=== PATIENT | female | born 1965 | race Caucasian/White ===

== ENCOUNTER 2017-11-16 15:08 | Observation (INO) | payer BC, OTHER ==
[2017-11-16] MEDS ORDERED: LEVOFLOXACIN 750MG/150ML D5W 750 MG/150 ML BAG IV ONE (17:54)
[2017-11-16] MEDS: Dextrose 5% -0.45 NaCl 1000 ML 1,000 ML IV SCH (18:16)
[2017-11-16] MEDS: LEVOFLOXACIN 750MG/150ML D5W 750 MG/150 ML BAG IV SCH (18:16)
[2017-11-16] MEDS: solu-MEDROL 125 MG IV SCH ×2 (18:16→23:35)
[2017-11-16 18:29] LABS: A-aADO2 -2; ABG HEMOGLOBIN 13.6; ABG POTASSIUM 3.8 (3.5-5.1); ARTERIAL BLOOD GAS BASE EXCESS 4.5 (-2.0-2.0); ARTERIAL BLOOD GAS FIO2 21 %; ARTERIAL BLOOD GAS PCO2 31 mmHg (35-45); ARTERIAL BLOOD GAS PO2 113 mmHg (75-100); ARTERIAL BLOOD GAS pH 7.54 (7.35-7.45); CARBOXYHEMOGLOBIN 1.9 % THgb (0.0-6.9); HCO3- 26.5 (22-28); HGB O2 SAT 96.8 g/dF (94-100); Methhemoglobin 1.2 % (1.4-1.5); paO2 pAO1 1.02
[2017-11-16 18:51] LABS: Granulocyte Absolute (ANC) 4.49 (1.4-6.9); Hematocrit 39.5 % (35-47); Hemoglobin 12.6 gm/dl (12.0-16.0); Mean Cell Volume 90.8 fl (78-100); Mean Corpuscular Hgb Concent. 31.9 g/dl (32-36); Mean Platelet Volume 9.8 fl (6-9.5); Platelet Count 271 K/mm3 (150-450); Red Blood Count 4.35 M/mm3 (4.1-5.4); Red Cell Distribution Width 13.4 % (11.5-14.0); White Blood Count 6.9 K/mm3 (4.0-10.5)
[2017-11-16] MEDS ORDERED: DUONEB 0.5-3 MG/3 ml Neb IH ONE (19:02)
[2017-11-16 19:28] LABS: ALBUMIN 4.1 g/dL (3.4-5.0); ALKALINE PHOSPHATASE 91 U/L (46-116); ANION GAP 11.3 MEQ/L (5-15); BLOOD UREA NITROGEN 19 mg/dL (9-20); CHLORIDE 104 mEq/L (98-107); Calcium 9.3 mg/dL (8.5-10.1); Carbon Dioxide 31.1 mEq/L (21-32); Creatinine 1 0.98 mg/dl (0.55-1.30); EST GLOMERULAR FILTRATION RATE > 60 ML/MIN; Glucose 107 MG/DL (70-110); NT PRO BNP 66 pg/ml (0-125); Potassium 4.1 mEq/L (3.5-5.1); SGOT/AST 24 U/L (15-37); SGPT/ALT 40 U/L (12-78); SODIUM 142 mEq/L (136-145); Total Protein 7.8 gm/dL (6.4-8.2)
[2017-11-16 19:30] LABS: TROPONIN < 0.017 ng/ml (0.000-0.056)
[2017-11-16] MEDS: DUONEB 0.5-3 MG/3 ml Neb IH SCH ×2 (20:05→23:29)
[2017-11-16 20:08] LABS: INFLUENZA B NEGATIVE (NEGATIVE); RESPIRATORY SYNCTIAL VIRUS NEGATIVE (Negative)
[2017-11-16 20:10] LABS: INFLUENZA A POSITIVE (NEGATIVE)
--- NOTE | 2017-11-16 20:41 | XRAY ---
Indication: Bronchopneumonia. Comparison: August 07, 2011. PA/lateral chest again demonstrates normal heart and lungs with incidental calcified granulomas. Bony thorax intact. No new/acute findings. Impression: Stable nonacute chest with evidence for old granulomatous disease.
[2017-11-16] MEDS: Tussionex Pennkinetic Susp PO SCH (21:27)
[2017-11-16] MEDS: TYLENOL 325 MG PO PRN (21:28)
[2017-11-16 22:27] LABS: Eosinophil 2 % (0.00-3.0); Lymphocytes 23 % (24-44); Monocyte 4 % (0.0-12.0); Neutrophils 71 % (36.0-66.0); Platelet Estimate NORMAL (NORMAL); Total Cells Counted 100
[2017-11-17] MEDS: DUONEB 0.5-3 MG/3 ml Neb IH SCH (05:32)
[2017-11-17] MEDS: solu-MEDROL 125 MG IV SCH ×2 (05:33→11:56)
[2017-11-17] MEDS: Dextrose 5% -0.45 NaCl 1000 ML 1,000 ML IV SCH ×2 (05:41→20:01)
[2017-11-17] MEDS ORDERED: DUONEB 0.5-3 MG/3 ml Neb IH PRN (07:18)
[2017-11-17] MEDS ORDERED: Xopenex 1.25 MG/0.5 ML UD NEBULE IH ONE (07:25)
[2017-11-17] MEDS ORDERED: NON-FORMULARY ITEM (Calcium [Calcium] 500 MG) PO SCH (10:00)
[2017-11-17] MEDS ORDERED: NON-FORMULARY ITEM (Multivitamin [Multivitamins] 1 EACH) PO SCH (10:00)
[2017-11-17] MEDS: Xopenex 1.25 MG/0.5 ML UD NEBULE IH SCH ×3 (11:00→22:29)
[2017-11-17] MEDS: LEVOFLOXACIN 750MG/150ML D5W 750 MG/150 ML BAG IV SCH (11:16)
[2017-11-17] MEDS: Tussionex Pennkinetic Susp PO SCH ×3 (11:17→23:20)
[2017-11-17] MEDS: Effexor XR 75 MG PO SCH (11:17)
[2017-11-17] MEDS: THERAGRAN MULTIVITAMIN PO SCH (11:17)
[2017-11-17] MEDS: VITAMIN B-12 100 MCG PO SCH (11:17)
[2017-11-17] MEDS: Calcium 500MG W/Vit D Tablet PO SCH (11:53)
[2017-11-17] MEDS: Tamiflu 75MG Capsule PO SCH ×2 (14:53→21:30)
[2017-11-17 15:18] LABS: Appearance CLEAR (CLEAR); Bacteria RARE /HPF (NEGATIVE); Bilirubin NEGATIVE (NEGATIVE); Blood NEGATIVE Ery/ul (0-5); Epithelial Cells RARE /HPF (FEW); Glucose NEGATIVE (NEGATIVE); Ketones NEGATIVE (NEGATIVE); Leukocyte Esterase NEGATIVE (NEGATIVE); Nitrite NEGATIVE (NEGATIVE); Protein,Urine Dip 300 (Negative); Specific Gravity 1.005 (1.005-1.025); Urobilinogen NORMAL mg/dL (0-1)
[2017-11-17] MEDS: solu-MEDROL 40 MG IV SCH (21:30)
[2017-11-17] MEDS ORDERED: Sodium Chloride 3 ML UD NEBULES IH ONE (22:21)
[2017-11-18] MEDS: TYLENOL 325 MG PO PRN (04:14)
[2017-11-18] MEDS: solu-MEDROL 40 MG IV SCH ×2 (05:20→15:06)
[2017-11-18] MEDS: Dextrose 5% -0.45 NaCl 1000 ML 1,000 ML IV SCH (05:20)
[2017-11-18] MEDS: Xopenex 1.25 MG/0.5 ML UD NEBULE IH SCH ×2 (07:25→11:36)
[2017-11-18] MEDS: LEVOFLOXACIN 750MG/150ML D5W 750 MG/150 ML BAG IV SCH (10:57)
[2017-11-18] MEDS: THERAGRAN MULTIVITAMIN PO SCH (10:57)
[2017-11-18] MEDS: Tussionex Pennkinetic Susp PO SCH (10:57)
[2017-11-18] MEDS: VITAMIN B-12 100 MCG PO SCH (10:57)
[2017-11-18] MEDS: Tamiflu 75MG Capsule PO SCH (10:57)
[2017-11-18] MEDS: Effexor XR 75 MG PO SCH (10:57)
[2017-11-18] MEDS: Calcium 500MG W/Vit D Tablet PO SCH (10:57)
[2017-11-18] MEDS ORDERED: Sodium Chloride 3 ML UD NEBULES IH SCH (11:00)
[2017-11-18 11:23] VITALS: BP 136/81
[2017-11-18 11:39] VITALS: PULSE 91; O2SAT 92
--- NOTE | 2017-11-19 10:47 | PROG NOTE ---
DATE: 11/17/2017 Chart is reviewed and events noted. At the time of this evaluation the patient is alert, awake. She states her shortness of breath has improved, still having some dry cough, denies chest pain. She states she is starting to eat better and overall feels better, appears comfortable. She complains of occasional headache. PHYSICAL EXAMINATION: VITAL SIGNS: Blood pressure 136/73, heart rate 88, respiratory rate 18, temperature 98.1F. Oxygen saturation 94%. HEENT: Pallor is present. No icterus is noted. NECK: No JVD is present. CVS: S1, S2 present. RESPIRATORY: Breath sounds are bilaterally diminished and clear to auscultation. ABDOMEN: Obese, soft, nontender. NEURO: She is alert, oriented x3. Evaluation of motor strength in bilateral upper and lower extremities reveals grossly intact motor strength. EXTREMITIES: No edema on bilateral lower extremities. LABORATORY DATA AND TESTS: Labs from yesterday had shown unremarkable CBC. ABG showed pH of 7.5, pCO2 31, pO2 113. CMP essentially unremarkable. Troponin was less than 0.017. NT-BNP 66. Respiratory panel showed positive for flu A. Blood cultures from 11/16/2017 are pending. EKG showed normal sinus rhythm at 75 beats/minute, flat T-wave in AVL. Chest x-ray showed stable nonacute chest with old granulomatous disease. Medications were reviewed. ASSESSMENT: A 52 year old woman with impression: 1) Acute bronchopneumonia. 2) Flu A. 3) Acute upper respiratory infection. 4) Anxiety. 5) Obesity. PLAN: Continue broad spectrum IV antibiotics. Taper steroids as tolerated. I was notified of the patient's positive flu A results by staff, will initiate Tamiflu. Continue droplet precautions. Ample p.o. fluids. The patient's clinical condition, work-up results and plan of management as outlined were discussed with the patient. She seems to be in understanding and agreement. The plan was discussed with the charge nurse.
--- NOTE | 2017-11-20 13:31 | DS ---
DISCHARGE DIAGNOSES: 1) ACUTE BRONCHOPNEUMONIA, CLINICALLY IMPROVED. 2) INFLUENZA A. 3) ACUTE UPPER RESPIRATORY INFECTION. 4) RIGHT EAR PAIN. 5) ANXIETY. 6) OBESITY. HOSPITAL COURSE: Inga Vela is a 52 year-old woman with past medical history of anxiety and obesity. She was recently seen for symptoms of bronchitis/upper respiratory infection in the office and was placed on antibiotics and steroids. Flu swab done at the time was negative. She did continue to have persistence of symptoms and was seen for follow up visit on 11/16/2017 at which time she had also reported some fever, generalized weakness and persistent symptoms. Please refer to my history and physical for details. The patient was admitted from office. Upon admission she was placed on IV fluids and broad spectrum IV antibiotics. Chest x-ray had revealed no acute changes. Other lab work up was negative except positive influenza A. I was not notified by positive results of influenza by nursing staff until the next day when I made rounds. The patient was immediately started on Tamiflu and also she had been placed on droplet precautions. Additionally, the patient was also placed on IV steroids and nebulization with improvement in her symptoms. During her further course she improved clinically and her steroids were gradually tapered. Blood cultures are still pending. The rest of her course was essentially more or less unremarkable. She improved clinically, remained hemodynamically stable. At the time of this evaluation earlier this afternoon she was alert, awake, comfortable, stated her shortness of breath had improved a lot. Complained of some mild right ear pain. She denied any other new complaints. She was tolerating diet well and had ambulated without any difficulty and was wishing to go home. PHYSICAL EXAMINATION: VITAL SIGNS: Blood pressure 126/78, heart rate 88, respiratory rate 18, temperature 97.4F. Oxygen saturation 96%. HEENT: No pallor or icterus is noted. Bilateral tympanic membranes seem to be dull. NECK: No JVD is present. CVS: S1, S2 present. RESPIRATORY: Breath sounds are bilaterally diminished and clear to auscultation. ABDOMEN: Obese, soft, nontender. NEURO: She is alert, oriented x3. EXTREMITIES: No edema on bilateral lower extremities. LABORATORY DATA AND TESTS: There were no new labs today. Blood cultures are pending. Medications were reviewed. ASSESSMENT: As outlined in the discharge diagnosis: PLAN: A 52 year-old lady with prior history of anxiety and obesity was admitted with persistent symptoms of acute bronchopneumonia. She was diagnosed with influenza A. She underwent work up and treatment. She has improved clinically, remains hemodynamically stable. She is feeling well and is wishing to go home. With regards to her right ear plan she was placed on hydrocortisone. The patient is being discharged home in stable condition. Please refer to discharge medication list from 11/18/2017 for details of medications on discharge. I have advised her drink ample p.o. fluids. I have advised her to stay off work until 11/19/2017 and return to work without restrictions on 11/20/2017. I asked her to follow up with me on 11/21/2017 as scheduled. Compliance with diet and medications was stressed. Complete cessation of smoking was stressed. I her to return to the Emergency Room [facility] if any new signs and symptoms or reappearance of previous signs and symptoms are noted. The patient's clinical condition, work-up results and plan of management and plan after discharge as outlined was discussed with her in detail. She seems to be in understanding and agreement. Discussed with charge nurse, Sivan. Please refer to the patient's chart, labs, diagnostic work up results and consult notes for details.
[2017-11-21 08:26] LABS: ABG SITE RIGHT RADIAL; ALLEN TEST OK? YES
== END 2017-11-18 16:00 | disposition home or self-care (01) ==
LOC: MED SURG 16:33
PROVIDERS: ADMIT General Practice; ATTEND General Practice
DX: J18.0 Bronchopneumonia, unspecified organism (principal); J10.1 Influenza due to other identified influenza virus with other respiratory manifestations; J06.9 Acute upper respiratory infection, unspecified; H92.01 Otalgia, right ear; F41.9 Anxiety disorder, unspecified; E66.9 Obesity, unspecified; Z79.899 Other long term (current) drug therapy
CPT/HCPCS: 36415; 36600; 71046; 80053; 81000; 82375; 82803; 83880; 84484; 85025; 87040; 87631; 93005; 94150; 94640; 94760; G0378; J1956; J2920; J2930; A9270-GY

== ENCOUNTER 2023-06-14 12:30 | Observation (INO) | payer OTHER ==
--- NOTE | 2023-06-14 12:38 | ERPHSYRPT ---
- History of Present Illness Time Seen by Provider: 06/14/23 12:38 Source: patient Exam Limitations: no limitations Physician History: This is an obese 57-year-old white female patient who was sent to our emergency department by primary care physician Dr. Jacobo. Patient began having symptoms of muscle aches and pains headache chills that began yesterday. This morning she woke up with bilateral ill pain, fever, cough, worsening chills and body aches with associated vomiting headache fatigue and dizziness. She was seen by her primary care physician today and found to have a positive COVID-19 test. She denies chest pain. She denies shortness of breath. She has no abdominal pain. Patient has a low-grade fever of 100.5 F on arrival to the emergency department. In addition she has a room air oxygenation level of 95%. Timing/Duration: yesterday Severity: moderate Associated Symptoms: nausea, vomiting, cough, chills, fever, weakness, No shortness of breath, No chest pain Allergies/Adverse Reactions: Penicillins Allergy (Verified 06/14/23 12:54) Home Medications: Venlafaxine HCl [Effexor Xr] 75 mg PO DAILY 08/05/12 [History] Calcium 500 mg PO DAILY 09/10/15 [History] Cyanocobalamin 100 Mcg [Vitamin B-12 100 Mcg] 100 mcg PO DAILY 09/10/15 [History] Multivitamin [Multivitamins] 1 each PO DAILY 09/10/15 [History] Hx Tetanus, Diphtheria Vaccination/Date Given: Yes Hx Influenza Vaccination/Date Given: No Hx Pneumococcal Vaccination/Date Given: No Travel Risk - International Travel Have you traveled outside of the country in past 3 weeks: No - Coronavirus Screening Are you exhibiting any of the following symptoms?: Yes Symptoms: Fever, Cough: New Onset, Vomiting/Diarrhea, Headaches/Body Aches/Fatigue Close contact with a COVID-19 positive Pt in past 14-21 Days: Yes - Review of Systems Constitutional: Fever, Chills, Weakness Eyes: No Symptoms Ears, Nose, & Throat: No Symptoms Respiratory: Cough, No Dyspnea Cardiac: No Chest Pain Abdominal/Gastrointestinal: Nausea, Vomiting, Diarrhea, Appetite Changes Musculoskeletal: Arthralgias, Myalgias Skin: No Symptoms Neurological: Dizziness, Headache Psychological: No Symptoms Endocrine: No Symptoms Hematologic/Lymphatic: No Symptoms Immunological/Allergic: No Symptoms All Other Systems: Reviewed and Negative - Past Medical History Pertinent Past Medical History: Yes Neurological History: No Pertinent History ENT History: Other Cardiac History: No Pertinent History Respiratory History: No Pertinent History Endocrine Medical History: No Pertinent History Musculoskeletal History: Fibromyalgia, Fractures GI Medical History: No Pertinent History History: No Pertinent History Psycho-Social History: Depression Female Reproductive Disorders: No Pertinent History Other Medical History: right ankle and leg fx, sinusitis - Past Surgical History Past Surgical History: Yes Neuro Surgical History: No Pertinent History Cardiac: No Pertinent History Respiratory: No Pertinent History Gastrointestinal: Exploratory Laparoscopy Genitourinary: No Pertinent History Musculoskeletal: Orthopedic Surgery Female Surgical History: Section, Hysterectomy - Social History Smoking Status: Never smoker Exposure to second hand smoke: No Drug Use: none Patient Lives Alone: No - Nursing Vital Signs Nursing Vital Signs: Initial Vital Signs Temperature 100.5 F 06/14/23 12:58 Pulse Rate 89 06/14/23 12:58 Respiratory Rate 20 06/14/23 12:58 Blood Pressure 154/83 06/14/23 12:58 O2 Sat by Pulse Oximetry 95 06/14/23 12:58 Pain Scale Pain Intensity 5 - Physical Exam General Appearance: mild distress, alert, anxiety, obese Eye Exam: PERRL/EOMI, eyes nml inspection Ears, Nose, Throat Exam: normal ENT inspection, moist mucous membranes Neck Exam: normal inspection, non-tender, supple, full range of motion Respiratory Exam: normal breath sounds, lungs clear, airway intact, No chest tenderness, No respiratory distress Cardiovascular Exam: regular rate/rhythm, normal heart sounds, normal peripheral pulses Gastrointestinal/Abdomen Exam: soft, normal bowel sounds, No tenderness Pelvic Exam: not done Rectal Exam: not done Back Exam: normal inspection, normal range of motion, No CVA tenderness Extremity Exam: normal inspection, normal range of motion, pelvis stable Neurologic Exam: alert, oriented x 3, cooperative, youth worker II-XII nml as tested, normal mood/affect, nml cerebellar function, nml station & gait, sensation nml Skin Exam: normal color, warm, dry Lymphatic Exam: No adenopathy SpO2 Interpretation: normal O2 Delivery: Room Air - Course Nursing assessment & vital signs reviewed: Yes EKG Interpreted by Me: RATE (82), Sinus Rhythm, NORMAL AXIS, NORMAL INTERVALS, NORMAL QRS, NORMAL ST-T, Other (No acute ischemic changes on today's twelve-lead EKG.) Ordered Tests: Active Orders 24 hr Category Date Time Status Mixing Pan Tender STAT Care 06/14/23 13:25 Active EKG-ER Only STAT Care 06/14/23 13:25 Active IV Insertion STAT Care 06/14/23 13:25 Active Oxygen-ED Only Nasal Cannula 2 lpm Care 06/14/23 14:15 Active Pulse Oximetry (ED) STAT Care 06/14/23 13:25 Active CHEST 1 VIEW (PORTABLE) Stat Exams 06/14/23 13:25 Completed BLOOD CULTURE Stat Lab 06/14/23 13:47 Received CBC W DIFF Stat Lab 06/14/23 13:25 Completed CMP Stat Lab 06/14/23 13:13 Completed D-DIMER QUANTITATIVE Stat Lab 06/14/23 13:25 Completed MONO SCREEN Stat Lab 06/14/23 13:13 Completed TROPONIN Q4H Lab 06/14/23 13:13 Received TROPONIN Q4H Lab 06/14/23 20:30 Ordered TROPONIN Q4H Lab 06/15/23 00:30 Ordered Transfer Order Routine Transfer 06/14/23 Ordered Medication Summary Generic Name Dose Route Start Last Admin Trade Name Freq PRN Reason Stop Dose Admin Methylprednisolone Sodium 0 mg 06/14/23 22:00 Succinate 80 mg/ Sterile Water IV 07/14/23 21:59 2 ml Q8HT CHARMAINE Ceftriaxone Sodium/Dextrose 1 g in 50 mls @ 100 mls/hr 06/14/23 16:47 Rocephin 1 Gm-D5w 50 Ml Bag IV 06/14/23 17:16 STAT STA Discontinued Medications Generic Name Dose Route Start Last Admin Trade Name Freq PRN Reason Stop Dose Admin Hydrocodone Bitart/Acetaminophen 10 ml 06/14/23 13:26 06/14/23 13:40 Hydrocodone/Acetaminophen 5 Ml Udcup PO 06/14/23 13:27 10 ml STAT STA Administration Hydrocodone Bitart/Acetaminophen Confirm 06/14/23 13:30 Hydrocodone/Acetaminophen 5 Ml Udcup Administered 06/14/23 13:31 Dose 10 ml .ROUTE .STK-MED ONE Methylprednisolone Sodium 0 mg 06/14/23 13:25 06/14/23 13:37 Succinate 125 mg/ Sterile IV 06/14/23 13:26 125 mg Water 2 ml STAT ONE Administration Sodium Chloride 1,000 mls @ 999 mls/hr 06/14/23 13:25 06/14/23 14:35 Sodium Chloride 0.9% 1000 Ml IV 06/14/23 14:25 Infused .Q1H1M STA Infusion Sodium Chloride Confirm 06/14/23 13:31 Sodium Chloride 0.9% 1000 Ml Administered 06/14/23 13:32 Dose 1,000 mls @ ud .ROUTE .STK-MED ONE Methylprednisolone Sodium Succinate Confirm 06/14/23 13:31 Methylprednis Sod Succ 125 Mg/2 Ml Vial Administered 06/14/23 13:32 Dose 125 mg .ROUTE .STK-MED ONE Ondansetron HCl Confirm 06/14/23 13:31 Ondansetron Hcl 4 Mg/2 Ml Vial Administered 06/14/23 13:32 Dose 4 mg .ROUTE .STK-MED ONE Ondansetron HCl 4 mg 06/14/23 13:41 06/14/23 13:41 Ondansetron Hcl 4 Mg/2 Ml Vial IV 06/14/23 13:42 4 mg STAT ONE Administration Sterile Water Confirm 06/14/23 13:30 Water For Injection,Sterile 10 Ml Vial Administered 06/14/23 13:31 Dose 10 ml IJ .STK-MED ONE Lab/Rad Data: Laboratory Result Diagrams 06/14/23 13:25 06/14/23 13:13 Laboratory Results 06/14/23 06/14/23 06/14/23 Range/Units 13:25 13:25 13:13 WBC 6.3 (4.0-10.5) x10^3/uL RBC 4.27 (4.1-5.4) x10^6/uL Hgb 12.5 (12.0-16.0) g/dL Hct 37.9 (35-47) % MCV 88.8 (78-100) fL MCH 29.3 (26-32) pg MCHC 33.0 (32-36) g/dL RDW 12.8 (11.5-14.0) % Plt Count 244 (150-450) x10^3/uL MPV 10.2 (7.5-11.0) fL Gran % 78.8 H (36.0-66.0) % Immature Gran % (Auto) 0.3 (0.00-0.4) % Nucleat RBC Rel Count 0.0 (0.00-0.1) % Eos # (Auto) 0.01 (0-0.5) x10^3/uL Immature Gran # (Auto) 0.02 (0.00-0.03) x10^3u/L Absolute Lymphs (auto) 0.64 L (1.0-4.6) x10^3/uL Absolute Monos (auto) 0.64 (0.0-1.3) x10^3/uL Absolute Nucleated RBC 0.00 (0.00-0.01) x10^3u/L Lymphocytes % 10.2 L (24.0-44.0) % Monocytes % 10.2 (0.0-12.0) % Eosinophils % 0.2 (0.00-5.0) % Basophils % 0.3 (0.0-0.4) % Absolute Granulocytes 4.97 (1.4-6.9) x10^3/uL Basophils # 0.02 (0-0.4) x10^3/uL D-Dimer 0.30 (0.0-0.50) mg/L Sodium (137-145) mmol/L Potassium (3.5-5.1) mmol/L Chloride (98-107) mmol/L Carbon Dioxide (22-30) mmol/L Anion Gap (5-15) MEQ/L BUN (7-17) mg/dL Creatinine (0.52-1.04) mg/dL Estimated GFR ML/MIN Glucose (74-106) mg/dL Calcium (8.4-10.2) mg/dL Total Bilirubin (0.2-1.3) mg/dL AST (14-36) U/L ALT (0-35) U/L Alkaline Phosphatase (38-126) U/L Serum Total Protein (6.3-8.2) g/dL Albumin (3.5-5.0) g/dL Monoscreen NEGATIVE (NEGATIVE) Group A Strep Antibody (NEGATIVE) 06/14/23 06/14/23 Range/Units 13:13 13:13 WBC (4.0-10.5) x10^3/uL RBC (4.1-5.4) x10^6/uL Hgb (12.0-16.0) g/dL Hct (35-47) % MCV (78-100) fL MCH (26-32) pg MCHC (32-36) g/dL RDW (11.5-14.0) % Plt Count (150-450) x10^3/uL MPV (7.5-11.0) fL Gran % (36.0-66.0) % Immature Gran % (Auto) (0.00-0.4) % Nucleat RBC Rel Count (0.00-0.1) % Eos # (Auto) (0-0.5) x10^3/uL Immature Gran # (Auto) (0.00-0.03) x10^3u/L Absolute Lymphs (auto) (1.0-4.6) x10^3/uL Absolute Monos (auto) (0.0-1.3) x10^3/uL Absolute Nucleated RBC (0.00-0.01) x10^3u/L Lymphocytes % (24.0-44.0) % Monocytes % (0.0-12.0) % Eosinophils % (0.00-5.0) % Basophils % (0.0-0.4) % Absolute Granulocytes (1.4-6.9) x10^3/uL Basophils # (0-0.4) x10^3/uL D-Dimer (0.0-0.50) mg/L Sodium 138 (137-145) mmol/L Potassium 3.8 (3.5-5.1) mmol/L Chloride 96 L (98-107) mmol/L Carbon Dioxide 32 H (22-30) mmol/L Anion Gap 14.3 (5-15) MEQ/L BUN 16 (7-17) mg/dL Creatinine 0.91 (0.52-1.04) mg/dL Estimated GFR > 60.0 ML/MIN Glucose 92 (74-106) mg/dL Calcium 9.7 (8.4-10.2) mg/dL Total Bilirubin 0.50 (0.2-1.3) mg/dL AST 31 (14-36) U/L ALT 30 (0-35) U/L Alkaline Phosphatase 91 (38-126) U/L Serum Total Protein 7.9 (6.3-8.2) g/dL Albumin 4.7 (3.5-5.0) g/dL Monoscreen (NEGATIVE) Group A Strep Antibody NOT DETECTED (NEGATIVE) - Progress Progress: improved, re-examined Progress Note: 06/14/23 16:15 This patient's medical issue is 1 of high complexity. Level complexity in the work-up performed is based on review of the patient's past medical history, review of the patient's medication list, review of the patient's drug allergy list, history of present illness and physical findings on examination. The work-up in this patient includes twelve-lead EKG, D-dimer level, chest x-ray, CBC, CMP, group A strep test, monotest. In addition we placed an intravenous li ne and provide the patient with 125 mg of Solu-Medrol intravenously and 10 mL of hydrocodone/acetaminophen elixir to help with sore throat and cough. 06/14/23 16:18 This x-ray was interpreted by the radiologist and I reviewed the impression. There is no evidence of any new, acute cardiopulmonary processes. 06/14/23 16:24 The original plan was to have this patient discharged to home. However she did have some desaturations and so I had respiratory therapy evaluate the patient. After the patient's desaturation, we placed the patient on 2 L oxygen via nasal cannula and the patient increased her oxygenation from 89% to 97%. Respiratory therapy evaluate her and took her off of the oxygen. The respiratory therapist observed the patient for approximately 12 minutes and the patient's oxygen s aturation level was maintained, originally, between 93 and 95%. However she then briefly desaturated down to 88 to 89%. We provided her with some options which included possible discharge to home with oxygen therapy or to be placed in observation if the hospitalist would agree the patient would require observation. I believe the patient would benefit from observation in the hospital with management. The patient then desaturated down to 83%. And stayed down to 83 to 89% on room air. Therefore, I will contact the hospitalist to place this patient in observation so we can provide her with steroids, nebulizer treatments, oxygen supplementation. 06/14/23 16:27 06/14/23 16:46 I reviewed the past medical history, history present illness and physical findings with Dr. Shannon, our telehospitalist. I also reviewed the patient's response to our management. He agrees with placing the patient in observation. We will also add Rocephin and azithromycin to her drug regimen. Counseled pt/family regarding: lab results, diagnosis, need for follow-up, rad results Medical Desision Making - Independent Historian Additional History obtained from: Family - Diagnostic Testing Diagnostic test were ordered, analyzed, and reviewed by me: Yes Radiological Interpretation: Reviewed by me, Teleradiologist Report - Risk of complications The pt has a high risk of morbidity or mortality based on: Decision regarding hospitilization or escalation of hosp level of care - Departure Departure Disposition: Observation Clinical Impression: COVID-19 virus infection, Hypoxia, Shortness of breath, Upper respiratory infection Condition: Fair Critical Care Time: Yes Critical Care Time(excluding separately billable procedures): Critical 30-74 mins (40 minutes) Referrals: ANA MARÍA JACOBO MD [Primary Care Provider] - Follow up/PCP as directed
[2023-06-14] MEDS ORDERED: Sodium Chloride 0.9% 1000 ML 1,000 ML IV STA (13:25)
[2023-06-14] MEDS ORDERED: solu-MEDROL 125 MG, Sterile H2O 10 ml 2 ML IV ONE ×2 (13:25)
[2023-06-14] MEDS ORDERED: HYDROCODONE-ACETAMIN 2.5-108/5 ML SOLUTION PO STA (13:26)
[2023-06-14] MEDS ORDERED: HYDROCODONE-ACETAMIN 2.5-108/5 ML SOLUTION ONE (13:30)
[2023-06-14] MEDS ORDERED: Sterile H2O 10 ml IJ ONE (13:30)
[2023-06-14] MEDS ORDERED: Sodium Chloride 0.9% 1000 ML 1,000 ML ONE (13:31)
[2023-06-14] MEDS ORDERED: Zofran 4 MG/2 ML VIAL ONE (13:31)
[2023-06-14] MEDS ORDERED: solu-MEDROL ONE (13:31)
[2023-06-14] MEDS ORDERED: Zofran 4 MG/2 ML VIAL IV ONE (13:41)
[2023-06-14 13:56] LABS: Absolute Neutrophil Ct (ANC) 4.97 x10^3/uL (1.4-6.9); BASOPHIL % 0.3 % (0.0-0.4); Basophil (Absolute #) 0.02 x10^3/uL (0-0.4); Eosinophil % 0.2 % (0.00-5.0); Eosinophil (Absolute #) 0.01 x10^3/uL (0-0.5); Hematocrit 37.9 % (35-47); Hemoglobin 12.5 g/dL (12.0-16.0); IMMATURE GRAN # 0.02 x10^3u/L (0.00-0.03); IMMATURE GRAN % 0.3 % (0.00-0.4); Lymphocyte (Absolute #) 0.64 x10^3/uL (1.0-4.6); Lymphocytes % 10.2 % (24.0-44.0); Mean Cell Volume 88.8 fL (78-100); Mean Corpuscular Hemoglobin 29.3 pg (26-32); Mean Platelet Volume 10.2 fL (7.5-11.0); Monocyte (Absolute #) 0.64 x10^3/uL (0.0-1.3); Monocytes % 10.2 % (0.0-12.0); Neutrophil % 78.8 % (36.0-66.0); Platelet Count 244 x10^3/uL (150-450); Red Blood Count 4.27 x10^6/uL (4.1-5.4); Red Cell Distribution Width 12.8 % (11.5-14.0); White Blood Count 6.3 x10^3/uL (4.0-10.5)
[2023-06-14 14:05] LABS: ALBUMIN 4.7 g/dL (3.5-5.0); ALKALINE PHOSPHATASE 91 U/L (38-126); ANION GAP 14.3 MEQ/L (5-15); BLOOD UREA NITROGEN 16 mg/dL (7-17); CHLORIDE 96 mmol/L (98-107); Calcium 9.7 mg/dL (8.4-10.2); Carbon Dioxide 32 mmol/L (22-30); Creatinine 1 0.91 mg/dL (0.52-1.04); EST GLOMERULAR FILTRATION RATE > 60.0 ML/MIN; Glucose 92 mg/dL (74-106); Potassium 3.8 mmol/L (3.5-5.1); SGOT/AST 31 U/L (14-36); SGPT/ALT 30 U/L (0-35); SODIUM 138 mmol/L (137-145); Total Protein 7.9 g/dL (6.3-8.2)
--- NOTE | 2023-06-14 16:01 | XRAY ---
Indication: Cough. Positive Covid 19. Comparison: October 23, 2018 Portable chest again demonstrates normal heart and lungs with incidental tiny right lung calcified granuloma. Bony thorax intact. No new/acute findings.
[2023-06-14] MEDS ORDERED: ROCEPHIN 1 Gm-D5w 50 ml Bag** 1 G/50 ML IVPB IV STA (16:47)
[2023-06-14] MEDS ORDERED: Sodium Chloride 0.9% 1000 ML 1,000 ML IV SCH (17:21)
[2023-06-14] MEDS ORDERED: HYDROCODONE-ACETAMIN 2.5-108/5 ML SOLUTION PO PRN (17:21)
[2023-06-14] MEDS ORDERED: TYLENOL 325 MG PO PRN (17:21)
--- NOTE | 2023-06-14 17:42 | PCM.HP ---
History of Present Illness - Chief Complaint Chief Complaint: Shortness of breath Date: 06/14/23 History of Present Illness: This is an obese 57-year-old white female patient with a hx of fibromyalgia and depression. She was sent to our emergency department by primary care physician Dr. Gonzales. Patient began having symptoms of muscle aches and pains, headache, and chills that began yesterday. This morning she woke up with bilateral ear pain, fever, cough, worsening chills and body aches with associated vomiting headache fatigue and dizziness. She was seen by her primary care physician today and found to have a positive COVID-19 test. She denies chest pain, abdominal pain, or diarrhea. Patient had a low-grade fever of 100.5 F on arrival to the emergency department. Room air oxygenation level of 95%. In the ER she received IV fluids, antibiotics, and steroids. We admit her and continue the same plan of care. - Review of Systems Constitutional: Fever, Chills Eyes: No Symptoms Ears, Nose, & Throat: No Symptoms, Ear Pain (BL) Respiratory: Cough, Short Of Breath Cardiac: No Chest Pain, No Edema, No Syncope Abdominal/Gastrointestinal: Vomiting, No Abdominal Pain, No Nausea, No Diarrhea Genitourinary Symptoms: No Dysuria Musculoskeletal: No Back Pain, No Neck Pain Skin: No Rash Neurological: No Dizziness, No Focal Weakness, No Sensory Changes Psychological: No Symptoms Endocrine: No Symptoms Hematologic/Lymphatic: No Symptoms Immunological/Allergic: No Symptoms Medications & Allergies Home Medications: Home Medication List Venlafaxine HCl [Effexor Xr] 75 mg PO DAILY 08/05/12 [History Confirmed 06/14/23] Calcium 500 mg PO DAILY 09/10/15 [History Confirmed 06/14/23] Cyanocobalamin 100 Mcg [Vitamin B-12 100 Mcg] 100 mcg PO DAILY 09/10/15 [History Confirmed 06/14/23] Multivitamin [Multivitamins] 1 each PO DAILY 09/10/15 [History Confirmed 06/14/23] Hydrocod Psx/Chlor-Carlos [Tussionex Pennkinetic Susp] 5 ml PO BID 7 Days #1 oralsyring MDD 10 11/18/17 [Rx Confirmed 06/14/23] Hydrocortisone/Acetic Acid [Hydrocortison-Acetic Acid Soln] 10 ml OT TID 5 Days #30 drops 11/18/17 [Rx Confirmed 06/14/23] Methylprednisolone Packet [Medrol Dosepack] 4 mg PO UD #1 packet 11/18/17 [Rx Confirmed 06/14/23] Oseltamivir 75 mg [Tamiflu 75MG Capsule] 75 mg PO BID 4 Days #8 cap 11/18/17 [Rx Confirmed 06/14/23] PANTOPRAZOLE 40 mg Tablet [Protonix 40MG Tablet] 40 mg PO QAM #7 tab 11/18/17 [Rx Confirmed 06/14/23] Allergies/Adverse Reactions: Allergies Allergy/AdvReac Type Severity Reaction Status Date / Time Penicillins Allergy Verified 06/14/23 12:54 - Past Medical History Past Medical History: Yes Neurological History: No Pertinent History ENT History: Other Cardiac History: No Pertinent History Respiratory History: No Pertinent History Endocrine Medical History: No Pertinent History Musculoskelatal History: Fibromyalgia, Fractures GI Medical History: No Pertinent History History: No Pertinent History Pyscho-Social History: Depression Reproductive Disorders: No Pertinent History Comment: right ankle and leg fx, sinusitis - Past Surgical History Past Surgical History: Yes Neuro Surgical History: No Pertinent History Cardiac History: No Pertinent History Respiratory Surgery: No Pertinent History GI Surgical History: Exploratory Laparoscopy Genitourinary Surgical Hx: No Pertinent History Musculskeletal Surgical Hx: Orthopedic Surgery Female Surgical History: Section, Hysterectomy - Social History Smoking Status: Never smoker Exposure to second hand smoke: No Alcohol: None Drug Use: none - Physical Exam Vital Signs: Vital Signs - 24 hr Temp Pulse Resp BP BP Pulse Ox 06/14/23 15:00 80 15 142/84 96 06/14/23 13:46 86 23 149/94 94 L 06/14/23 13:27 94 L 06/14/23 12:58 100.5 F 89 20 154/83 95 General Appearance: no apparent distress, alert Neurologic Exam: alert, oriented x 3, cooperative, normal mood/affect, nml cerebellar function, nml station & gait, sensation nml, No motor deficits Eye Exam: PERRL/EOMI, eyes nml inspection Ears, Nose, Throat Exam: normal ENT inspection, TMs normal, pharynx normal, moist mucous membranes Neck Exam: normal inspection, non-tender, supple, full range of motion Respiratory Exam: normal breath sounds, lungs clear, No respiratory distress Cardiovascular Exam: regular rate/rhythm, normal heart sounds, normal peripheral pulses Gastrointestinal/Abdomen Exam: soft, normal bowel sounds, No tenderness, No mass Back Exam: normal inspection, normal range of motion, No CVA tenderness, No vertebral tenderness Extremity Exam: normal inspection, normal range of motion, pelvis stable Skin Exam: normal color, warm, dry, No rash Lymphatic Exam: No adenopathy Results - Labs Lab/Micro Results: Lab Results-Last 24 Hours 06/14/23 06/14/23 06/14/23 Range/Units 13:13 13:13 13:13 WBC (4.0-10.5) x10^3/uL RBC (4.1-5.4) x10^6/uL Hgb (12.0-16.0) g/dL Hct (35-47) % MCV (78-100) fL MCH (26-32) pg MCHC (32-36) g/dL RDW (11.5-14.0) % Plt Count (150-450) x10^3/uL MPV (7.5-11.0) fL Gran % (36.0-66.0) % Immature Gran % (Auto) (0.00-0.4) % Nucleat RBC Rel Count (0.00-0.1) % Eos # (Auto) (0-0.5) x10^3/uL Immature Gran # (Auto) (0.00-0.03) x10^3u/L Absolute Lymphs (auto) (1.0-4.6) x10^3/uL Absolute Monos (auto) (0.0-1.3) x10^3/uL Absolute Nucleated RBC (0.00-0.01) x10^3u/L Lymphocytes % (24.0-44.0) % Monocytes % (0.0-12.0) % Eosinophils % (0.00-5.0) % Basophils % (0.0-0.4) % Absolute Granulocytes (1.4-6.9) x10^3/uL Basophils # (0-0.4) x10^3/uL D-Dimer (0.0-0.50) mg/L Sodium 138 (137-145) mmol/L Potassium 3.8 (3.5-5.1) mmol/L Chloride 96 L (98-107) mmol/L Carbon Dioxide 32 H (22-30) mmol/L Anion Gap 14.3 (5-15) MEQ/L BUN 16 (7-17) mg/dL Creatinine 0.91 (0.52-1.04) mg/dL Estimated GFR > 60.0 ML/MIN Glucose 92 (74-106) mg/dL Calcium 9.7 (8.4-10.2) mg/dL Total Bilirubin 0.50 (0.2-1.3) mg/dL AST 31 (14-36) U/L ALT 30 (0-35) U/L Alkaline Phosphatase 91 (38-126) U/L Troponin I (0.000-0.034) ng/mL Serum Total Protein 7.9 (6.3-8.2) g/dL Albumin 4.7 (3.5-5.0) g/dL Monoscreen NEGATIVE (NEGATIVE) Group A Strep Antibody NOT DETECTED (NEGATIVE) 06/14/23 06/14/23 06/14/23 Range/Units 13:13 13:25 13:25 WBC 6.3 (4.0-10.5) x10^3/uL RBC 4.27 (4.1-5.4) x10^6/uL Hgb 12.5 (12.0-16.0) g/dL Hct 37.9 (35-47) % MCV 88.8 (78-100) fL MCH 29.3 (26-32) pg MCHC 33.0 (32-36) g/dL RDW 12.8 (11.5-14.0) % Plt Count 244 (150-450) x10^3/uL MPV 10.2 (7.5-11.0) fL Gran % 78.8 H (36.0-66.0) % Immature Gran % (Auto) 0.3 (0.00-0.4) % Nucleat RBC Rel Count 0.0 (0.00-0.1) % Eos # (Auto) 0.01 (0-0.5) x10^3/uL Immature Gran # (Auto) 0.02 (0.00-0.03) x10^3u/L Absolute Lymphs (auto) 0.64 L (1.0-4.6) x10^3/uL Absolute Monos (auto) 0.64 (0.0-1.3) x10^3/uL Absolute Nucleated RBC 0.00 (0.00-0.01) x10^3u/L Lymphocytes % 10.2 L (24.0-44.0) % Monocytes % 10.2 (0.0-12.0) % Eosinophils % 0.2 (0.00-5.0) % Basophils % 0.3 (0.0-0.4) % Absolute Granulocytes 4.97 (1.4-6.9) x10^3/uL Basophils # 0.02 (0-0.4) x10^3/uL D-Dimer 0.30 (0.0-0.50) mg/L Sodium (137-145) mmol/L Potassium (3.5-5.1) mmol/L Chloride (98-107) mmol/L Carbon Dioxide (22-30) mmol/L Anion Gap (5-15) MEQ/L BUN (7-17) mg/dL Creatinine (0.52-1.04) mg/dL Estimated GFR ML/MIN Glucose (74-106) mg/dL Calcium (8.4-10.2) mg/dL Total Bilirubin (0.2-1.3) mg/dL AST (14-36) U/L ALT (0-35) U/L Alkaline Phosphatase (38-126) U/L Troponin I < 0.012 (0.000-0.034) ng/mL Serum Total Protein (6.3-8.2) g/dL Albumin (3.5-5.0) g/dL Monoscreen (NEGATIVE) Group A Strep Antibody (NEGATIVE) - Radiology Impressions Radiology Exams & Impressions: Radiology Procedures Category Date Time Status CHEST 1 VIEW (PORTABLE) Stat Exams 06/14/23 13:25 Completed - Other Procedures and Tests Respiratory Therapy 06/14/23 17:21 EKG REPEAT IN AM Oxygen Nasal Cannula 2 lpm Respiratory Therapy Consult ONCE Assessment/Plan (1) COVID-19 virus infection Current Visit: Yes Status: Acute Assessment & Plan: - Decadron, doxycycline, breathing treatments - RT eval and treat - Tylenol for body aches and headaches - NS @ 50 - Chest XR 06/14/23 Portable chest again demonstrates normal heart and lungs with incidental tiny right lung calcified granuloma. Bony thorax intact. No new/acute findings. Code(s): U07.1 - COVID-19 (2) Obesity Current Visit: Yes Status: Acute Assessment & Plan: - advised diet and exercise control Code(s): E66.9 - OBESITY, UNSPECIFIED (3) Nausea & vomiting Current Visit: Yes Status: Acute Assessment & Plan: - Zofran PRN - NS @ 50 Code(s): R11.2 - NAUSEA WITH VOMITING, UNSPECIFIED (4) Depression Current Visit: Yes Status: Acute Assessment & Plan: - Continue effexor Code(s): F32.A - DEPRESSION, UNSPECIFIED (5) Shortness of breath Current Visit: Yes Status: Acute Assessment & Plan: -R/T COVID - PRN Oxygen Keep sat > 92% - RT eval and treat - Steroids and antibiotics VTE: Lovenox PPI: Protonix D/C plan: tomorrow Next of kin: - Carly Vela [phone] Code(s): R06.02 - SHORTNESS OF BREATH
[2023-06-14] MEDS ORDERED: Zofran 4 MG/2 ML VIAL IV PRN (18:35)
[2023-06-14 19:35] LABS: INFLUENZA A NEGATIVE (NEGATIVE); INFLUENZA B NEGATIVE (NEGATIVE); RESPIRATORY SYNCTIAL VIRUS NEGATIVE (NEGATIVE)
[2023-06-14 19:58] LABS: SARS-CoV-2 Xpert Express POSITIVE (NEGATIVE)
[2023-06-14] MEDS: HYDROCODONE-CHLORPHEN ER SUSP PO SCH (21:15)
[2023-06-14] MEDS: Vibramycin 100 MG PO SCH (21:15)
[2023-06-14] MEDS ORDERED: ACETIC ACID OT SCH (22:00)
[2023-06-14] MEDS ORDERED: [UNRECOGNIZED DRUG - OTHER] OT SCH (22:00)
[2023-06-14] MEDS ORDERED: HYDROCORTISONE OT SCH (22:00)
[2023-06-14] MEDS ORDERED: solu-MEDROL 80 MG, Sterile H2O 10 ml 2 ML IV SCH ×2 (22:00)
[2023-06-15 01:56] LABS: Absolute Neutrophil Ct (ANC) 4.22 x10^3/uL (1.4-6.9); Basophil (Absolute #) 0 x10^3/uL (0-0.4); Eosinophil (Absolute #) 0 x10^3/uL (0-0.5); Hematocrit 37.7 % (35-47); Hemoglobin 12.1 g/dL (12.0-16.0); IMMATURE GRAN # 0.02 x10^3u/L (0.00-0.03); IMMATURE GRAN % 0.4 % (0.00-0.4); Lymphocyte (Absolute #) 0.51 x10^3/uL (1.0-4.6); Lymphocytes % 10.6 % (24.0-44.0); Mean Cell Volume 90.6 fL (78-100); Mean Corpuscular Hemoglobin 29.1 pg (26-32); Mean Corpuscular Hgb Concent. 32.1 g/dL (32-36); Mean Platelet Volume 9.8 fL (7.5-11.0); Monocyte (Absolute #) 0.04 x10^3/uL (0.0-1.3); Monocytes % 0.8 % (0.0-12.0); Neutrophil % 88.2 % (36.0-66.0); Platelet Count 257 x10^3/uL (150-450); Red Blood Count 4.16 x10^6/uL (4.1-5.4); Red Cell Distribution Width 12.9 % (11.5-14.0); White Blood Count 4.8 x10^3/uL (4.0-10.5)
[2023-06-15 02:12] LABS: ALBUMIN 4.3 g/dL (3.5-5.0); ALKALINE PHOSPHATASE 71 U/L (38-126); ANION GAP 15.3 MEQ/L (5-15); BLOOD UREA NITROGEN 16 mg/dL (7-17); CHLORIDE 99 mmol/L (98-107); Calcium 8.9 mg/dL (8.4-10.2); Carbon Dioxide 28 mmol/L (22-30); EST GLOMERULAR FILTRATION RATE > 60.0 ML/MIN; Glucose 170 mg/dL (74-106); NT PRO BNPII 87.5 pg/mL (<300); SGOT/AST 32 U/L (14-36); SGPT/ALT 30 U/L (0-35); SODIUM 138 mmol/L (137-145); Total Protein 7.1 g/dL (6.3-8.2)
[2023-06-15 03:03] LABS: Slide Review 1 YES
[2023-06-15 06:45] VITALS: BP 137/85; PULSE 75; RESP 14; TEMP 98.2
[2023-06-15] MEDS ORDERED: MEDICATION INTERVENTION MC SCH (07:15)
[2023-06-15] MEDS: Vibramycin 100 MG PO SCH (09:54)
[2023-06-15] MEDS: HYDROCODONE-CHLORPHEN ER SUSP PO SCH (09:55)
[2023-06-15] MEDS ORDERED: Calcium 500MG W/Vit D Tablet PO SCH (10:00)
[2023-06-15] MEDS ORDERED: THERAGRAN MULTIVITAMIN PO SCH (10:00)
[2023-06-15] MEDS ORDERED: DECADRON 10MG INJ. IV SCH (10:00)
[2023-06-15] MEDS ORDERED: ROCEPHIN 1 Gm-D5w 50 ml Bag** 1 G/50 ML IVPB IV SCH (10:00)
[2023-06-15] MEDS ORDERED: NON-FORMULARY ITEM (Multivitamin [Multivitamins] 1 EACH Capsule) PO SCH (10:00)
[2023-06-15] MEDS ORDERED: Protonix 40MG Tablet PO SCH (10:00)
[2023-06-15] MEDS ORDERED: VITAMIN B-12 100 MCG PO SCH (10:00)
[2023-06-15] MEDS ORDERED: CALCIUM 500 MG PO SCH (10:00)
[2023-06-15] MEDS ORDERED: Effexor XR 75 MG PO SCH (10:00)
[2023-06-15] MEDS ORDERED: Zithromax 500 MG/ 250 ML NaCl Premix 500 MG/250 ML IVPB IV SCH (10:00)
[2023-06-15] MEDS ORDERED: ENOXAPARIN SODIUM SQ SCH (10:00)
[2023-06-15] MEDS ORDERED: Decadron 4 MG PO SCH (10:00)
--- NOTE | 2023-06-15 10:03 | PCM.DS ---
Discharge Summary Date of Admission: 06/14/23 17:18 Date of Discharge: 06/15/23 Admitting Physician: SUKH CHAVEZ MD Primary Care Provider: ANA MARÍA JACOBO Allergies Allergies Penicillins Allergy (Verified 06/14/23 12:54) Hospital Summary - Hospital Course Hospital Course: This is an obese 57-year-old white female patient with a hx of fibromyalgia and depression. She was sent to our emergency department by primary care physician Dr. Jacobo. Patient began having symptoms of muscle aches and pains, headache, and chills that began 2 days ago. She woke up with bilateral ear pain, fever, cough, worsening chills and body aches with associated vomiting headache fatigue and dizziness. She was seen by her primary care physician today and found to hav e a positive COVID-19 test. She denied chest pain, abdominal pain, or diarrhea. Patient had a low-grade fever of 100.5 F on arrival to the emergency department. Room air oxygenation level of 95%. In the ER she received IV fluids, antibiotics, and steroids. We admitted her overnight and continued the same plan of care. She is feeling much better today and would like to go home. She is no longer requiring oxygen and has afrebrile since admission. N/V has resolved. She still has some right ear pressure nut other than that she is feeling much better. - Vitals & Intake/Output Vital Signs: Vital Signs Temperature 98.2 F 06/15/23 06:44 Pulse Rate 75 06/15/23 06:44 Respiratory Rate 14 06/15/23 06:44 Blood Pressure 137/85 06/15/23 06:44 O2 Sat by Pulse Oximetry 100 06/15/23 06:44 Intake & Output: Intake & Output 06/12/23 06/13/23 06/14/23 06/15/23 11:59 11:59 11:59 11:59 Intake Total 1000 Balance 1000 Weight 80.4 kg - Lab Result Diagrams: 06/15/23 01:45 06/15/23 01:45 Lab Results-Last 24 Hrs: Lab Results-Last 24 Hours 06/14/23 06/14/23 06/14/23 Range/Units 13:13 13:13 13:13 WBC (4.0-10.5) x10^3/uL RBC (4.1-5.4) x10^6/uL Hgb (12.0-16.0) g/dL Hct (35-47) % MCV (78-100) fL MCH (26-32) pg MCHC (32-36) g/dL RDW (11.5-14.0) % Plt Count (150-450) x10^3/uL MPV (7.5-11.0) fL Gran % (36.0-66.0) % Immature Gran % (Auto) (0.00-0.4) % Nucleat RBC Rel Count (0.00-0.1) % Eos # (Auto) (0-0.5) x10^3/uL Immature Gran # (Auto) (0.00-0.03) x10^3u/L Absolute Lymphs (auto) (1.0-4.6) x10^3/uL Absolute Monos (auto) (0.0-1.3) x10^3/uL Absolute Nucleated RBC (0.00-0.01) x10^3u/L Lymphocytes % (24.0-44.0) % Monocytes % (0.0-12.0) % Eosinophils % (0.00-5.0) % Basophils % (0.0-0.4) % Absolute Granulocytes (1.4-6.9) x10^3/uL Basophils # (0-0.4) x10^3/uL D-Dimer (0.0-0.50) mg/L Sodium 138 (137-145) mmol/L Potassium 3.8 (3.5-5.1) mmol/L Chloride 96 L (98-107) mmol/L Carbon Dioxide 32 H (22-30) mmol/L Anion Gap 14.3 (5-15) MEQ/L BUN 16 (7-17) mg/dL Creatinine 0.91 (0.52-1.04) mg/dL Estimated GFR > 60.0 ML/MIN Glucose 92 (74-106) mg/dL Calcium 9.7 (8.4-10.2) mg/dL Total Bilirubin 0.50 (0.2-1.3) mg/dL AST 31 (14-36) U/L ALT 30 (0-35) U/L Alkaline Phosphatase 91 (38-126) U/L Troponin I (0.000-0.034) ng/mL NT-Pro-B Natriuret Pep (<300) pg/mL Serum Total Protein 7.9 (6.3-8.2) g/dL Albumin 4.7 (3.5-5.0) g/dL Monoscreen NEGATIVE (NEGATIVE) Influenza Type A Ag (NEGATIVE) Influenza Type B Ag (NEGATIVE) RSV (PCR) (NEGATIVE) SARS-CoV-2 (PCR) (NEGATIVE) Group A Strep Antibody NOT DETECTED (NEGATIVE) Slides for Path Review 06/14/23 06/14/23 06/14/23 Range/Units 13:13 13:25 13:25 WBC 6.3 (4.0-10.5) x10^3/uL RBC 4.27 (4.1-5.4) x10^6/uL Hgb 12.5 (12.0-16.0) g/dL Hct 37.9 (35-47) % MCV 88.8 (78-100) fL MCH 29.3 (26-32) pg MCHC 33.0 (32-36) g/dL RDW 12.8 (11.5-14.0) % Plt Count 244 (150-450) x10^3/uL MPV 10.2 (7.5-11.0) fL Gran % 78.8 H (36.0-66.0) % Immature Gran % (Auto) 0.3 (0.00-0.4) % Nucleat RBC Rel Count 0.0 (0.00-0.1) % Eos # (Auto) 0.01 (0-0.5) x10^3/uL Immature Gran # (Auto) 0.02 (0.00-0.03) x10^3u/L Absolute Lymphs (auto) 0.64 L (1.0-4.6) x10^3/uL Absolute Monos (auto) 0.64 (0.0-1.3) x10^3/uL Absolute Nucleated RBC 0.00 (0.00-0.01) x10^3u/L Lymphocytes % 10.2 L (24.0-44.0) % Monocytes % 10.2 (0.0-12.0) % Eosinophils % 0.2 (0.00-5.0) % Basophils % 0.3 (0.0-0.4) % Absolute Granulocytes 4.97 (1.4-6.9) x10^3/uL Basophils # 0.02 (0-0.4) x10^3/uL D-Dimer 0.30 (0.0-0.50) mg/L Sodium (137-145) mmol/L Potassium (3.5-5.1) mmol/L Chloride (98-107) mmol/L Carbon Dioxide (22-30) mmol/L Anion Gap (5-15) MEQ/L BUN (7-17) mg/dL Creatinine (0.52-1.04) mg/dL Estimated GFR ML/MIN Glucose (74-106) mg/dL Calcium (8.4-10.2) mg/dL Total Bilirubin (0.2-1.3) mg/dL AST (14-36) U/L ALT (0-35) U/L Alkaline Phosphatase (38-126) U/L Troponin I < 0.012 (0.000-0.034) ng/mL NT-Pro-B Natriuret Pep (<300) pg/mL Serum Total Protein (6.3-8.2) g/dL Albumin (3.5-5.0) g/dL Monoscreen (NEGATIVE) Influenza Type A Ag (NEGATIVE) Influenza Type B Ag (NEGATIVE) RSV (PCR) (NEGATIVE) SARS-CoV-2 (PCR) (NEGATIVE) Group A Strep Antibody (NEGATIVE) Slides for Path Review 06/14/23 06/14/23 06/15/23 Range/Units 18:50 20:30 01:45 WBC (4.0-10.5) x10^3/uL RBC (4.1-5.4) x10^6/uL Hgb (12.0-16.0) g/dL Hct (35-47) % MCV (78-100) fL MCH (26-32) pg MCHC (32-36) g/dL RDW (11.5-14.0) % Plt Count (150-450) x10^3/uL MPV (7.5-11.0) fL Gran % (36.0-66.0) % Immature Gran % (Auto) (0.00-0.4) % Nucleat RBC Rel Count (0.00-0.1) % Eos # (Auto) (0-0.5) x10^3/uL Immature Gran # (Auto) (0.00-0.03) x10^3u/L Absolute Lymphs (auto) (1.0-4.6) x10^3/uL Absolute Monos (auto) (0.0-1.3) x10^3/uL Absolute Nucleated RBC (0.00-0.01) x10^3u/L Lymphocytes % (24.0-44.0) % Monocytes % (0.0-12.0) % Eosinophils % (0.00-5.0) % Basophils % (0.0-0.4) % Absolute Granulocytes (1.4-6.9) x10^3/uL Basophils # (0-0.4) x10^3/uL D-Dimer (0.0-0.50) mg/L Sodium (137-145) mmol/L Potassium (3.5-5.1) mmol/L Chloride (98-107) mmol/L Carbon Dioxide (22-30) mmol/L Anion Gap (5-15) MEQ/L BUN (7-17) mg/dL Creatinine (0.52-1.04) mg/dL Estimated GFR ML/MIN Glucose (74-106) mg/dL Calcium (8.4-10.2) mg/dL Total Bilirubin (0.2-1.3) mg/dL AST (14-36) U/L ALT (0-35) U/L Alkaline Phosphatase (38-126) U/L Troponin I < 0.012 < 0.012 (0.000-0.034) ng/mL NT-Pro-B Natriuret Pep (<300) pg/mL Serum Total Protein (6.3-8.2) g/dL Albumin (3.5-5.0) g/dL Monoscreen (NEGATIVE) Influenza Type A Ag NEGATIVE (NEGATIVE) Influenza Type B Ag NEGATIVE (NEGATIVE) RSV (PCR) NEGATIVE (NEGATIVE) SARS-CoV-2 (PCR) POSITIVE A (NEGATIVE) Group A Strep Antibody (NEGATIVE) Slides for Path Review 06/15/23 06/15/23 Range/Units 01:45 01:45 WBC 4.8 (4.0-10.5) x10^3/uL RBC 4.16 (4.1-5.4) x10^6/uL Hgb 12.1 (12.0-16.0) g/dL Hct 37.7 (35-47) % MCV 90.6 (78-100) fL MCH 29.1 (26-32) pg MCHC 32.1 (32-36) g/dL RDW 12.9 (11.5-14.0) % Plt Count 257 (150-450) x10^3/uL MPV 9.8 (7.5-11.0) fL Gran % 88.2 H (36.0-66.0) % Immature Gran % (Auto) 0.4 (0.00-0.4) % Nucleat RBC Rel Count 0.0 (0.00-0.1) % Eos # (Auto) 0 (0-0.5) x10^3/uL Immature Gran # (Auto) 0.02 (0.00-0.03) x10^3u/L Absolute Lymphs (auto) 0.51 L (1.0-4.6) x10^3/uL Absolute Monos (auto) 0.04 (0.0-1.3) x10^3/uL Absolute Nucleated RBC 0.00 (0.00-0.01) x10^3u/L Lymphocytes % 10.6 L (24.0-44.0) % Monocytes % 0.8 (0.0-12.0) % Eosinophils % 0.0 (0.00-5.0) % Basophils % 0.0 (0.0-0.4) % Absolute Granulocytes 4.22 (1.4-6.9) x10^3/uL Basophils # 0 (0-0.4) x10^3/uL D-Dimer (0.0-0.50) mg/L Sodium 138 (137-145) mmol/L Potassium 4.0 (3.5-5.1) mmol/L Chloride 99 (98-107) mmol/L Carbon Dioxide 28 (22-30) mmol/L Anion Gap 15.3 H (5-15) MEQ/L BUN 16 (7-17) mg/dL Creatinine 0.80 (0.52-1.04) mg/dL Estimated GFR > 60.0 ML/MIN Glucose 170 H (74-106) mg/dL Calcium 8.9 (8.4-10.2) mg/dL Total Bilirubin 0.20 (0.2-1.3) mg/dL AST 32 (14-36) U/L ALT 30 (0-35) U/L Alkaline Phosphatase 71 (38-126) U/L Troponin I (0.000-0.034) ng/mL NT-Pro-B Natriuret Pep 87.5 (<300) pg/mL Serum Total Protein 7.1 (6.3-8.2) g/dL Albumin 4.3 (3.5-5.0) g/dL Monoscreen (NEGATIVE) Influenza Type A Ag (NEGATIVE) Influenza Type B Ag (NEGATIVE) RSV (PCR) (NEGATIVE) SARS-CoV-2 (PCR) (NEGATIVE) Group A Strep Antibody (NEGATIVE) Slides for Path Review YES - Radiology Exams Ordered Rad Exams-Entire Visit: Radiology Procedures Category Date Time Status CHEST 1 VIEW (PORTABLE) Stat Exams 06/14/23 13:25 Completed - Procedures and Test Procedures and Tests throughout Hospitalization: Therapy Orders & Screens 06/14/23 17:21 EKG REPEAT IN AM Comment: Oxygen Nasal Cannula 2 lpm Comment: Respiratory Therapy Consult ONCE Comment: Reason For Exam: 06/14/23 17:48 Oxygen NASAL CANNULA 2 lpm Comment: Diagnosis: Shortness of breath 06/14/23 18:17 Respiratory Therapy Consult ROUTINE Comment: may need albuterol and duonebs Reason For Exam: need for breathing treatments. + Covid Diagnosis: Shortness of breath 06/14/23 18:25 Oxygen Nasal Cannula 2 lpm Comment: if needed, Wean to keep O2 > 92% Diagnosis: Shortness of breath 06/15/23 09:15 Incentive Spirometry TID Comment: every 1-2 hours, please teach pt how to use. Diagnosis: Shortness of breath Discharge Exam General Appearance: no apparent distress, alert Neurologic Exam: alert, oriented x 3, cooperative, normal mood/affect, nml cerebellar function, sensation nml, No motor deficits Eye Exam: PERRL, EOMI, eyes nml inspection Ears, Nose, Throat Exam: pharynx normal, moist mucous membranes, TM abnormal (R) (+Pressure and pain, no redness or edema) Neck Exam: normal inspection, non-tender, supple, full range of motion Respiratory Exam: normal breath sounds, lungs clear, No respiratory distress Cardiovascular Exam: regular rate/rhythm, normal heart sounds Gastrointestinal/Abdomen Exam: soft, No tenderness, No mass Pelvic Exam: deferred Rectal Exam: deferred Back Exam: normal inspection, normal range of motion, No CVA tenderness, No vertebral tenderness Extremity Exam: normal inspection, normal range of motion Skin Exam: normal color, warm, dry Final Diagnosis/Problem List - Final Discharge Diagnosis/Problem (1) COVID-19 virus infection Current Visit: Yes Status: Acute Assessment & Plan: - Decadron, doxycycline, breathing treatments - RT eval and treat - Tylenol for body aches and headaches - NS @ 50 - Chest XR 06/14/23 Portable chest again demonstrates normal heart and lungs with incidental tiny right lung calcified granuloma. Bony thorax intact. No new/acute findings. 06/15 oxygen weaned off- now RA Code(s): U07.1 - COVID-19 (2) Obesity Current Visit: Yes Status: Acute Assessment & Plan: - advised diet and exercise control Code(s): E66.9 - OBESITY, UNSPECIFIED (3) Nausea & vomiting Current Visit: Yes Status: Acute Assessment & Plan: - Zofran PRN - NS @ 50 06/15 - resolved Code(s): R11.2 - NAUSEA WITH VOMITING, UNSPECIFIED (4) Depression Current Visit: Yes Status: Acute Assessment & Plan: - Continue effexor Code(s): F32.A - DEPRESSION, UNSPECIFIED (5) Shortness of breath Current Visit: Yes Status: Acute Assessment & Plan: Assessment & Plan: -R/T COVID - PRN Oxygen Keep sat > 92% - RT eval and treat - Steroids and antibiotics 06/15 - improved - IS with teaching- will send home with pt Code(s): R06.02 - SHORTNESS OF BREATH - Discharge Discharge Date: 06/15/23 Disposition: Home, Self-Care Condition: Stable Prescriptions: New Doxycycline Hyclate 100 mg [Vibramycin 100 MG] 100 mg PO BID 5 Days #9 tablet Continue Venlafaxine HCl [Effexor Xr] 75 mg PO DAILY Calcium 500 mg PO DAILY Multivitamin [Multivitamins] 1 each PO DAILY Cyanocobalamin 100 Mcg [Vitamin B-12 100 Mcg] 100 mcg PO DAILY Hydrocod Psx/Chlor-Carlos [Tussionex Pennkinetic Susp] 5 ml PO BID 7 Days #1 oralsyring MDD 10 Hydrocortisone/Acetic Acid [Hydrocortison-Acetic Acid Soln] 10 ml OT TID 5 Days #30 drops PANTOPRAZOLE 40 mg Tablet [Protonix 40MG Tablet] 40 mg PO QAM #7 tab Discontinued Methylprednisolone Packet [Medrol Dosepack] 4 mg PO UD #1 packet Oseltamivir 75 mg [Tamiflu 75MG Capsule] 75 mg PO BID 4 Days #8 cap Additional Instructions: May need OP sleep study. F/u with PCP to determine. Pt's oxygen level dropping to 88-89% when asleep. May also be temporary r/t COVID. Use incentive spirometer every 1-2 hours 10 times as directed. Pt has tessalon pearls at home, use as needed. Use OTC allergy medication as discussed for right ear pressure. Follow up with: ANA MARÍA JACOBO MD [Primary Care Provider] -
[2023-06-15 10:14] VITALS: O2SAT 95
== END 2023-06-15 12:27 | disposition home or self-care (01) ==
LOC: ED 12:30 → MED SURG 17:18
PROVIDERS: ADMIT Internal Medicine; ATTEND Internal Medicine
DX: U07.1 COVID-19 (principal); E66.9 Obesity, unspecified; R11.2 Nausea with vomiting, unspecified; F32.A Depression, unspecified; R06.02 Shortness of breath; Z79.899 Other long term (current) drug therapy; Z20.828 Contact with and (suspected) exposure to other viral communicable diseases
CPT/HCPCS: 0241U; 36000; 36415; 71045; 80053; 83880; 84484; 85025; 85379; 86308; 87040; 87651; 93005; 93041; 94760; 94762; 96374; 96375; 99285; 99291; 93268; G0378; J1100; J2405; J2930; A9270-GY